=== PATIENT | male | born 1985 | race African-American/Black ===

== ENCOUNTER 2017-07-19 15:34 | Emergency (ER) | payer MEDICARE, MEDICAID ==
[~2017-07-19] VITALS: Ht 175.3 cm; Wt 77.1 kg
[2017-07-19 15:42] VITALS: BP 127/82
[2017-07-19] MEDS ORDERED: DIPHENHYDRAMINE25 M1 ORAL (16:42)
[2017-07-19 16:45] VITALS: BP 125/76
--- NOTE | 2017-07-20 16:31 | Emergency Room Report ---
History of Present Illness General Chief Complaint: Sore Throat Source: Patient Present Illness HPI 31-year-old male presents ED for evaluation. Patient brought in by EMS from [facility] housing for neck stiffness which started today. Patient states he has reaction to Haldol and states he was given Haldol by the facility today. States that by the time he arrived the neck stiffness has resolved. Patient states he is feeling better. Denies any sore throat. Denies any pain. Denies any difficulty swallowing or breathing. Denies any suicidal or homicidal ideations. Denies hearing voices. No other aggravating or relieving factors. Denies any other associated symptoms Allergies: Coded Allergies: No Known Allergies (Unverified , 06/20/15) Patient History Past Medical History: psych hx Past Surgical History: none Pertinent Family History: none Social History: Denies: smoking, alcohol use, drug use Immunizations: UTD Reviewed Nursing Documentation: PMH: Agreed; PSxH: Agreed Nursing Documentation-PMH History Of Psychiatric Problem: Yes Review of Systems All Other Systems: negative except mentioned in HPI Physical Exam Vital Signs Date Time Temp Pulse Resp B/P (MAP) Pulse Ox O2 Delivery O2 Flow Rate FiO2 07/19/17 15:35 98.6 68 20 127/82 99 Room Air 98.6 Sp02 EP Interpretation: reviewed, normal General Appearance: no apparent distress, alert, GCS 15, non-toxic Head: normocephalic, atraumatic Eyes: bilateral eye normal inspection, bilateral eye PERRL ENT: hearing grossly normal, normal pharynx, no angioedema, normal voice Neck: full range of motion, supple, no meningismus, supple/symm/no masses Respiratory: chest non-tender, lungs clear, normal breath sounds, speaking full sentences Cardiovascular #1: regular rate, rhythm, no edema Cardiovascular #2: 2+ carotid (R), 2+ carotid (L), 2+ radial (R), 2+ radial (L) , 2+ dorsalis pedis (R), 2+ dorsalis pedis (L) Gastrointestinal: normal bowel sounds, non tender, soft, non-distended, no guarding, no rebound Rectal: deferred Genitourinary: normal inspection, no CVA tenderness Musculoskeletal: back normal, gait/station normal, normal range of motion, non- tender Neurologic: alert, oriented x3, responsive, motor strength/tone normal, sensory intact, speech normal Psychiatric: judgement/insight normal, memory normal, mood/affect normal, no suicidal/homicidal ideation, no delusions, anxious Reflexes: 3+ bicep (R), 3+ bicep (L), 3+ tricep (R), 3+ tricep (L), 3+ knee (R) , 3+ knee (L) Skin: normal color, no rash, warm/dry, well hydrated Lymphatic: no adenopathy Medical Decision Making Diagnostic Impression: Primary Impression: Adverse drug reaction Qualified Codes: T88.7XXA - Unspecified adverse effect of drug or medicament, initial encounter Additional Impression: Dystonia ER Course Hospital Course 31-year-old male presents ED complaining of neck stiffness, reaction to Haldol given today Differential diagnoses include: allergic reaction, cervical strain, dystonic reaction Clinical course Patient placed on stretcher. After initial history, physical exam reveals male in no acute distress. There is no nuchal rigidity. No evidence of dystonic reaction at this time. No eye rolling. Patient is awake alert oriented 3. Mentating appropriately. communicating with me. At this point I believe the dystonic reaction has since resolved. Likely due to the Haldol given to him. Patient given Benadryl here. I believe patient is safe for discharge back to facility. I will provide instructions not to give Haldol and to find alternative medications i. I feel this is a highly complex case requiring extensive working including EKG/Rhythm strip, Xray/CT/US, Blood/urine lab work, repeat exams while in ED, and administration of strong opiates/narcotics for pain control, admission to hospital or close patient follow up. Diagnosis - adverse drug reaction, dystonia Stable and discharged to home with prescriptions for benedryl, prednisone. stop haldol. Followup with PMD/psych. Return to ED if symptoms recur or worsen Last Vital Signs Date Time Temp Pulse Resp B/P (MAP) Pulse Ox O2 Delivery O2 Flow Rate FiO2 07/19/17 16:45 98.3 77 16 125/76 99 Room Air 98.3 Status: improved Disposition: HOME, SELF-CARE Condition: Stable Scripts Diphenhydramine Hcl* (DIPHENHYDRAMINE HCL*) 25 Mg Capsule 25 MG ORAL Q6H PRN for Itching for 5 Days, #30 CAP 0 Refills Prov: Robe Gaines MD 07/19/17 Patient Instructions: Drug Allergy, [id number] Additional Instructions: stop taking haldol. f/u with psychiatry for alternative medication Robe Gaines MD Jul 20, 2017 16:31
== END 2017-07-19 16:45 | disposition home or self-care (01) ==
LOC: EDBD 15:34 → EMR 15:58
DX: T43.4X5A Adverse effect of butyrophenone and thiothixene neuroleptics, initial encounter (principal); Y92.10 Unspecified residential institution as the place of occurrence of the external cause; G24.9 Dystonia, unspecified; M43.6 Torticollis
CPT/HCPCS: 99283; J7512

== ENCOUNTER 2017-07-20 09:45 | Emergency (ER) | payer MEDICARE, MEDICAID ==
[~2017-07-20] VITALS: Ht 167.6 cm; Wt 70.8 kg
[~2017-07-20 09:45] MED LIST: DIPHENHYDRAMINE25 M1 ORAL
--- NOTE | 2017-07-20 10:07 | Emergency Room Report ---
History of Present Illness General Chief Complaint: General Complaint Source: Family Member Present Illness HPI Patient is a 31-year-old male brought in by mom for increased dystonia. Patient was noted to have previous adverse reaction to Haldol. Patient had been given IM injection of Benadryl yesterday. The patient was noted to have improvement. The patient presented after the recurrence of similar symptoms. The patient states he was having some difficulty with breathing. Allergies: Coded Allergies: No Known Allergies (Unverified , 06/20/15) Patient History Reviewed Nursing Documentation: PMH: Agreed; PSxH: Agreed Nursing Documentation-PMH History Of Psychiatric Problem: Yes Review of Systems All Other Systems: negative except mentioned in HPI Physical Exam Vital Signs Date Time Temp Pulse Resp B/P (MAP) Pulse Ox O2 Delivery O2 Flow Rate FiO2 07/20/17 09:50 97.7 71 16 95/65 98 Room Air 97.7 General Appearance: well appearing, no apparent distress, alert, GCS 15 Head: normocephalic, atraumatic ENT: hearing grossly normal, normal voice, other - tongue normal Neck: full range of motion, supple Respiratory: no respiratory distress, speaking full sentences Gastrointestinal: normal inspection, normal bowel sounds, non tender, soft Musculoskeletal: normal inspection, back normal, normal range of motion, no calf tenderness Neurologic: normal inspection, alert, oriented x3, responsive, normal gait Psychiatric: mood/affect normal, other - slow speech Skin: no rash Medical Decision Making ER Course Patient presented for difficulty moving his tongue. The differential diagnosis included was not limited to dystonic reaction, tardive dyskinesia, seizure, conversion disorder , among others. Patient has a benign exam and does not appear to require any further imaging or laboratory testing at this time. The patient does not appear to have any acute dystonic reaction at this time requiring medications.The patient was advised to discontinue Haldol use. This is not one of the patient's baseline medications The patient is advised to follow up with primary care doctor in 1-2 days. Patient is advised to return if any worsening condition or if any changes in status that are concerning. This report is dictated with [employer] applications packager software which may occasionally lead to discrepancies related to use of this software. Last Vital Signs Date Time Temp Pulse Resp B/P (MAP) Pulse Ox O2 Delivery O2 Flow Rate FiO2 07/20/17 09:50 97.7 71 16 95/65 98 Room Air 97.7 Status: improved Disposition: HOME, SELF-CARE Condition: Stable Salbador Burgess MD Jul 20, 2017 10:07
[2017-07-20 10:17] VITALS: BP 95/65
== END 2017-07-20 10:19 | disposition home or self-care (01) ==
LOC: EMR 10:05
DX: G24.9 Dystonia, unspecified (principal)
CPT/HCPCS: 99281

== ENCOUNTER 2017-11-12 17:28 | Emergency (ER) | payer MEDICARE, MEDICAID ==
[~2017-11-12] VITALS: Ht 172.7 cm; Wt 81.6 kg
[2017-11-12 17:30] VITALS: BP 134/83
[2017-11-12] MEDS ORDERED: DiphenhydrAMINE 50mg/ml Inj IVP ONE (17:45)
[2017-11-12] MEDS ORDERED: Albuterol/Ipratropium 3ml neb HHN ONE (17:45)
[2017-11-12] MEDS ORDERED: LORazepam Inj 2mg/ml 1ml IV ONE (17:45)
[2017-11-12 17:48] LABS: BASOPHILS % (AUTO) 1.7 % (0.0-2.0); EOSINOPHILS % (AUTO) 8.4 % (0.0-3.0); HEMATOCRIT 41.7 % (42.0-52.0); HEMOGLOBIN 13.4 G/DL (14.2-18.0); LYMPHOCYTES % (AUTO) 32.3 % (20.0-45.0); MEAN CORPUSCULAR VOLUME 95 FL (80-99); MONOCYTES % (AUTO) 5.7 % (1.0-10.0); NEUTROPHILS % (AUTO) 51.9 % (45.0-75.0); PLATELET COUNT 298 K/UL (150-450); RED BLOOD COUNT 4.38 M/UL (4.70-6.10); RED CELL DISTRIBUTION WIDTH 13.3 % (11.6-14.8); WHITE BLOOD COUNT 6.1 K/UL (4.8-10.8)
[2017-11-12 18:00] LABS: ANION GAP 4 mmol/L (5-15); BLOOD UREA NITROGEN 17 mg/dL (7-18); CALCIUM 9.6 MG/DL (8.5-10.1); CARBON DIOXIDE 32 MMOL/L (21-32); CHLORIDE 106 MMOL/L (98-107); POTASSIUM 4.2 MMOL/L (3.5-5.1); SODIUM 142 MMOL/L (136-145)
[2017-11-12 18:04] LABS: ALANINE AMINOTRANSFERASE 20 U/L (12-78); ALBUMIN 3.7 G/DL (3.4-5.0); ALBUMIN/GLOBULIN RATIO 1.1 (1.0-2.7); ALKALINE PHOSPHATASE 67 U/L (46-116); ASPARTATE AMINO TRANSFERASE 16 U/L (15-37); BILIRUBIN,TOTAL 0.2 MG/DL (0.2-1.0)
--- NOTE | 2017-11-12 18:09 | Emergency Room Report ---
History of Present Illness General Chief Complaint: General Complaint Source: EMS Present Illness HPI Patient is a 31-year-old male who presented after increased difficulty breathing. Patient was brought in by EMS. Patient prior history of bipolar disorder. He reports having increased difficulty with breathing. He denies any recent drug use he reports being a smoker. The patient any fever. History is limited by poor historian. Allergies: Coded Allergies: No Known Allergies (Unverified , 06/20/15) Patient History Reviewed Nursing Documentation: PMH: Agreed; PSxH: Agreed Review of Systems All Other Systems: limited - by poor historian Physical Exam Vital Signs Date Time Temp Pulse Resp B/P (MAP) Pulse Ox O2 Delivery O2 Flow Rate FiO2 11/12/17 17:23 97.5 74 14 134/83 98 97.5 11/12/17 17:50 Room Air 21 Sp02 EP Interpretation: reviewed, normal General Appearance: normal inspection, well appearing, no apparent distress, alert, GCS 15 Head: atraumatic ENT: normal ENT inspection, hearing grossly normal, normal voice Neck: normal inspection, full range of motion, supple, no bony tend Respiratory: normal inspection, lungs clear, normal breath sounds, no respiratory distress, no retraction, no wheezing Cardiovascular #1: regular rate, rhythm, no edema Gastrointestinal: normal inspection, normal bowel sounds, non tender, soft, no guarding, no hernia Genitourinary: no CVA tenderness Musculoskeletal: normal inspection, back normal, normal range of motion Neurologic: normal inspection, alert, oriented x3, responsive, epic beacon analyst III-XII nml as tested, speech normal Psychiatric: judgement/insight normal, mood/affect normal, anxious Skin: normal inspection, normal color, no rash Medical Decision Making Diagnostic Impression: Primary Impression: Methamphetamine abuse ER Course Patient presented for shortness of breath. Differential diagnosis included was not limited to asthma, anxiety, substance abuse, among others. Because of complexity of patient's case laboratory testing and imaging studies were ordered.The patient given IV Ativan with improvement of symptoms. Urine drug she was noted be positive for amphetamine The patient is advised to follow up with primary care doctor in 1-2 days. Patient is advised to return if any worsening condition or if any changes in status that are concerning. This report is dictated with [employer] purchasing buyer software which may occasionally lead to discrepancies related to use of this software. Labs Test 9/25/18 17:30 11/12/17 18:15 White Blood Count 6.1 K/UL (4.8-10.8) Red Blood Count 4.38 M/UL (4.70-6.10) Hemoglobin 13.4 G/DL (14.2-18.0) Hematocrit 41.7 % (42.0-52.0) Mean Corpuscular Volume 95 FL (80-99) Mean Corpuscular Hemoglobin 30.7 PG (27.0-31.0) Mean Corpuscular Hemoglobin Concent 32.2 G/DL (32.0-36.0) Red Cell Distribution Width 13.3 % (11.6-14.8) Platelet Count 298 K/UL (150-450) Mean Platelet Volume 6.6 FL (6.5-10.1) Neutrophils (%) (Auto) 51.9 % (45.0-75.0) Lymphocytes (%) (Auto) 32.3 % (20.0-45.0) Monocytes (%) (Auto) 5.7 % (1.0-10.0) Eosinophils (%) (Auto) 8.4 % (0.0-3.0) Basophils (%) (Auto) 1.7 % (0.0-2.0) Sodium Level 142 MMOL/L (136-145) Potassium Level 4.2 MMOL/L (3.5-5.1) Chloride Level 106 MMOL/L (98-107) Carbon Dioxide Level 32 MMOL/L (21-32) Anion Gap 4 mmol/L (5-15) Blood Urea Nitrogen 17 mg/dL (7-18) Creatinine 1.0 MG/DL (0.55-1.30) Estimat Glomerular Filtration Rate > 60 mL/min (>60) Glucose Level 120 MG/DL (74-106) Calcium Level 9.6 MG/DL (8.5-10.1) Total Bilirubin 0.2 MG/DL (0.2-1.0) Aspartate Amino Transf (AST/SGOT) 16 U/L (15-37) Alanine Aminotransferase (ALT/SGPT) 20 U/L (12-78) Alkaline Phosphatase 67 U/L (46-116) Troponin I 0.000 ng/mL (0.000-0.056) Total Protein 7.1 G/DL (6.4-8.2) Albumin 3.7 G/DL (3.4-5.0) Globulin 3.4 g/dL Albumin/Globulin Ratio 1.1 (1.0-2.7) Salicylates Level 2.1 ug/mL (2.8-20) Acetaminophen Level < 2 MCG/ML (10-30) Serum Alcohol < 3 mg/dL Urine Opiates Screen Negative (NEGATIVE) Urine Barbiturates Screen Negative (NEGATIVE) Phencyclidine (PCP) Screen Negative (NEGATIVE) Urine Amphetamines Screen Positive (NEGATIVE) Urine Benzodiazepines Screen Negative (NEGATIVE) Urine Cocaine Screen Negative (NEGATIVE) Urine Marijuana (THC) Screen Negative (NEGATIVE) Last Vital Signs Date Time Temp Pulse Resp B/P (MAP) Pulse Ox O2 Delivery O2 Flow Rate FiO2 11/12/17 17:59 70 15 100 Room Air 21 11/12/17 17:23 97.5 134/83 97.5 Status: improved Disposition: HOME, SELF-CARE Condition: Stable Referrals: NON PHYSICIAN (PCP) Salbador Burgess MD Nov 12, 2017 18:09
[2017-11-12 20:06] VITALS: BP 110/58
[2017-11-12 21:29] VITALS: BP 106/61
== END 2017-11-12 21:31 | disposition home or self-care (01) ==
LOC: EDBD 17:28 → EMR 17:49
DX: F15.10 Other stimulant abuse, uncomplicated (principal)
CPT/HCPCS: 36415; 80053; 80307; 84484; 85025; 94640; 94664; 96374; 96375; 99284; G0480; J1200; 80329; J7620